=== PATIENT | female | born 1955 | race Caucasian/White ===

== ENCOUNTER → 2018-04-19 | Outpatient (CLI) | payer OTHER | LOC: FIMAGING 09:29 | PROVIDERS: ATTEND Internal Medicine | DX: R07.81 Pleurodynia (principal); R16.2 Hepatomegaly with splenomegaly, not elsewhere classified; N28.1 Cyst of kidney, acquired ==

== ENCOUNTER → 2018-08-10 | Outpatient (CLI) | payer OTHER | LOC: FIMAGING 17:47 | PROVIDERS: ATTEND Podiatrist Foot & Ankle Surgery | DX: M21.761 Unequal limb length (acquired), right tibia (principal); M17.11 Unilateral primary osteoarthritis, right knee; Z96.652 Presence of left artificial knee joint ==